=== PATIENT | male | born 1960 | race Hispanic/Latino ===

== ENCOUNTER 2025-01-13 04:15 | Observation (INO) | payer OTHER ==
[2025-01-13 05:12] LABS: #Basophils 0.04 10x3/uL (0.0-0.2); #Eosinophils 0.07 10x3/uL (0.0-0.7); #Monocytes 0.59 10x3/uL (0.11-0.59); #Neutrophils 7.55 10x3/uL (1.40-6.50); %Basophils 0.4 % (0.0-1.0); %Eosinophils 0.8 % (0.0-10.0); %Lymphocytes 9.2 % (21.0-51.0); %Monocytes 6.5 % (0.0-10.0); %Neutrophils 82.8 % (42.0-75.0); Hematocrit 46.0 % (42.0-52.0); Hemoglobin 13.4 g/dL (14.0-18.0); Mean Corpuscular Hemoglobin 25.8 pg (27.0-31.0); Mean Corpuscular Volume 88.6 fL (78.0-98.0); Platelet Count 148 10x3/uL (130-400); Red Blood Cell (RBC) Count 5.19 mill/uL (4.70-6.10); White Blood Cell (WBC) Count 9.12 10x3/uL (4.8-10.8)
[2025-01-13 05:26] LABS: ALT (SGPT) 17 U/L (Less than 45); AST (SGOT) 19 U/L (11-34); Albumin 3.8 g/dL (3.1-4.5); Alkaline Phosphatase 104 U/L (40-110); Anion Gap 13 mmol/L (10-20); BUN (Urea Nitrogen) 10 mg/dL (8.4-25.7); Bilirubin, Total 0.4 mg/dL (0.3-1.2); CK (CPK) 181 U/L (30-200); Calc. Creatinine Clearance 0 mL/min (70-130); Calcium 8.3 mg/dL (7.8-10.44); Carbon Dioxide 20 mmol/L (23-31); Chloride 108 mmol/L (98-107); Globulin 2.5 g/dL (2.4-3.5); Glucose 164 mg/dL (80-115); Lipase 54 U/L (8-78); Potassium 3.7 mmol/L (3.5-5.1); Sodium 137 mmol/L (136-145)
[2025-01-13 05:27] LABS: INR-International Normal Ratio 1.0; Prothrombin Time 13.3 sec (12.0-14.7)
[2025-01-13 05:28] LABS: PTT 33.2 sec (22.9-36.1)
[2025-01-13] MEDS ORDERED: Boostrix 0.5 ML (Tdap) VIAL (>/=7 yrs of age) ONE (05:38)
[2025-01-13] MEDS ORDERED: Ondansetron PF 4 MG/2 ML Vial ONE (05:38)
[2025-01-13 06:26] LABS: Cocaine Metabolite Screen PRELIM POSITIVE (Negative); THC/Cannabinoid Screen Negative (Negative); Tricyclic Screen Negative (Negative)
[2025-01-13] MEDS ORDERED: Glucagon 1 MG/ML KIT IM PRN (08:01)
[2025-01-13] MEDS ORDERED: hydrALAZINE 20 MG/ML VIAL SLOW IVP PRN (08:01)
[2025-01-13] MEDS ORDERED: Dextrose 50% Abboject 50 ML SYRINGE SLOW IVP PRN (08:01)
[2025-01-13] MEDS ORDERED: Acetaminophen 325 MG TAB PO PRN (08:01)
[2025-01-13 08:59] LABS: Hematocrit 46.2 % (42.0-52.0); Hemoglobin 13.4 g/dL (14.0-18.0)
[2025-01-13] MEDS ORDERED: Iopamidol 370 76% 100 ML VIAL ONE (12:42)
[2025-01-13 14:40] LABS: Hematocrit 47.0 % (42.0-52.0); Hemoglobin 13.7 g/dL (14.0-18.0)
[2025-01-13] MEDS: Methocarbamol 500 MG TAB PO PRN (16:27)
[2025-01-13 18:52] VITALS: BMI 31.6
[2025-01-13 20:03] LABS: Hematocrit 43.5 % (42.0-52.0); Hemoglobin 12.6 g/dL (14.0-18.0)
[2025-01-14 02:25] LABS: #Basophils 0.03 10x3/uL (0.0-0.2); #Eosinophils 0.24 10x3/uL (0.0-0.7); #Monocytes 0.46 10x3/uL (0.11-0.59); #Neutrophils 2.84 10x3/uL (1.40-6.50); %Basophils 0.6 % (0.0-1.0); %Eosinophils 5.0 % (0.0-10.0); %Lymphocytes 24.8 % (21.0-51.0); %Monocytes 9.7 % (0.0-10.0); %Neutrophils 59.7 % (42.0-75.0); Hematocrit 43.1 % (42.0-52.0); Hemoglobin 12.5 g/dL (14.0-18.0); Mean Corpuscular Hemoglobin 25.7 pg (27.0-31.0); Mean Corpuscular Volume 88.7 fL (78.0-98.0); Platelet Count 132 10x3/uL (130-400); Red Blood Cell (RBC) Count 4.86 mill/uL (4.70-6.10); White Blood Cell (WBC) Count 4.76 10x3/uL (4.8-10.8)
[2025-01-14 03:23] LABS: Anion Gap 12 mmol/L (10-20); BUN (Urea Nitrogen) 8 mg/dL (8.4-25.7); Calc. Creatinine Clearance 107 mL/min (70-130); Calcium 8.1 mg/dL (7.8-10.44); Carbon Dioxide 22 mmol/L (23-31); Chloride 106 mmol/L (98-107); Glucose 137 mg/dL (80-115); Potassium 3.4 mmol/L (3.5-5.1); Sodium 137 mmol/L (136-145)
[2025-01-14 08:12] LABS: Hematocrit 44.5 % (42.0-52.0); Hemoglobin 12.9 g/dL (14.0-18.0)
[2025-01-14 14:04] LABS: Hematocrit 43.1 % (42.0-52.0); Hemoglobin 12.4 g/dL (14.0-18.0)
[2025-01-14 15:16] VITALS: BP 137/86; TEMP 98.1
== END 2025-01-14 16:00 | disposition home or self-care (01) ==
LOC: ERS 04:15 → ERHOLD 08:09 → SURG A 12:07
PROVIDERS: ADMIT Surgery; ATTEND Surgery
DX: S22.050A Wedge compression fracture of T5-T6 vertebra, initial encounter for closed fracture (principal); S27.321A Contusion of lung, unilateral, initial encounter; S80.02XA Contusion of left knee, initial encounter; I10 Essential (primary) hypertension; E11.9 Type 2 diabetes mellitus without complications; Z79.84 Long term (current) use of oral hypoglycemic drugs; Z79.82 Long term (current) use of aspirin; V60.5XXA Driver of heavy transport vehicle injured in collision with pedestrian or animal in traffic accident, initial encounter
CPT/HCPCS: 70450; 71260; 72125; 72157; 73701; 74177; 80048; 80053; 80306; 80307; 82550; 82962 ×2; 83605; 83690; 85014 ×2; 85018 ×2; 85025 ×2; 85610; 85730; 86850; 86900; 86901; 90471; 90715; 96374; 96375; 97116; 97535; 99285; G0378 ×3; G0390; J2270; J2405; Q9967; 36415; 36416